=== PATIENT | male | born 1960 | race Caucasian/White ===

== ENCOUNTER 2022-06-26 04:38 | Inpatient (IN) | payer OTHER ==
[~2022-06-26] VITALS: Ht 180.3 cm; Wt 75.6 kg
[2022-06-26 04:56] LABS: BASOPHILS ABSOLUTE AUTO 0.06 K/mm3 (0.00-0.23); BASOPHILS PERCENT AUTO 1 % (0-2); EOSINOPHILS ABSOLUTE AUTO 0.09 K/mm3 (0.00-0.68); EOSINOPHILS PERCENT AUTO 1 % (0-6); Hematocrit 40.6 % (37.0-53.0); Hemoglobin 14.1 g/dL (13.5-17.5); IMMATURE GRAN ABSOLUTE AUTO 0.03 K/mm3 (0.00-0.10); IMMATURE GRAN PERCENT AUTO 0 % (0-1); LYMPHOCYTES PERCENT AUTO 7 % (21-46); MONOCYTES ABSOLUTE AUTO 0.56 K/mm3 (0.16-1.47); MONOCYTES PERCENT AUTO 6 % (4-13); Mean Corpuscular HGB 32.4 pg (26.0-34.0); Mean Corpuscular HGB Conc 34.7 g/dL (31.5-36.5); Mean Corpuscular Volume 93 fL (80-100); Mean Platelet Volume 10.2 fL (9.1-12.4); NEUTROPHILS ABSOLUTE AUTO 7.66 K/mm3 (1.96-9.15); NEUTROPHILS PERCENT AUTO 85 % (41-73); Platelet Count 192 K/mm3 (150-400); RDW Coefficient Variation 13.1 % (11.7-14.2); RDW Standard Deviation 45.1 fL (35.1-46.3); Red Blood Cell Count 4.35 M/mm3 (4.30-5.90)
[2022-06-26 05:04] LABS: PCO2 Arterial 50.5 mmHg (35-45); PO2 Arterial 219 mmHg (80-100)
[2022-06-26 05:05] LABS: pH Blood Arterial 7.29 (7.35-7.45)
[2022-06-26 05:23] LABS: U Amphetamine Screen DETECTED; U Barbituate Screen Not Detected; U Benzodiazapine Screen Not Detected; U Buprenorphine Screen Not Detected; U Cannabinoids Screen DETECTED; U Cocaine Screen Not Detected; U Methadone Screen Not Detected; U Methamphetamine Screen DETECTED; U Opiates Screen Not Detected; U Oxycodone Screen Not Detected; U Phencyclidine Screen Not Detected; U Propoxyphene Screen Not Detected
[2022-06-26 05:25] LABS: Alanine Aminotransfer (ALT/SGP 36 U/L (12-78); Albumin, Blood 3.2 g/dL (3.4-5.0); Alk Phos 61 U/L (50-136); Anion Gap 8 mmol/L (6-16); Aspartate Aminotrans (AST/SGOT 35 U/L (12-37); Bilirubin, Total 0.7 mg/dL (0.1-1.0); Blood Urea Nitrogen 20 mg/dL (8-24); Bun/Creatinine Ratio 14.7 (12.0-20.0); CO2, Blood 27 mmol/L (21-32); Calcium, Blood 8.7 mg/dL (8.5-10.1); Chloride, Blood 108 mmol/L (98-108); Creatinine, Blood 1.36 mg/dL (0.60-1.20); Ethanol (Alcohol), Blood, Med <3 mg/dL; Globulin, Blood 3.3 g/dL (2.2-4.0); Glomerular Filtration Rate 41 (60-); Glucose, Blood 113 mg/dL (70-99); Sodium, Blood 143 mmol/L (136-145); Total Protein, Blood 6.5 g/dL (6.4-8.2)
[2022-06-26 05:32] LABS: Magnesium, Blood 2.1 mg/dL (1.6-2.4)
[2022-06-26 08:37] LABS: Creatine Kinase MB 9.7 ng/mL (0.0-3.6); Creatine Kinase MB Index 3.1 (0.0-4.0)
--- NOTE | 2022-06-26 09:03 | NUR ---
PT IS INTUBATED W/ VENT SETTINGS AT 16/550/5/21% SPO2 >92%; MAP >65. PT GRIMACES TO NOXIOUS STIMULI, COUGH'S TO SUCTION, NO GAG REFLEX, PINPOINT PUPILS WITH SLOW RESPONSE, AND OPENS EYES WHEN REPOSITIONING. NARCAN RUNNING PER ORDER.
--- NOTE | 2022-06-26 11:08 | NUR ---
UPDATE PT FOLLOWING DIRECTIONS AND OPENING EYES SPONTANEOUSLY; SHAKING FEET. TOLERATING VENTILATOR FOR NOW. SOMNULENT.
--- NOTE | 2022-06-26 11:33 | NUR ---
UPDATE ADVANCED OG TUBE 4CM PER DR CHAMPION'S VERBAL ORDER W/O ISSUE.
--- NOTE | 2022-06-26 18:23 | NUR ---
SHIFT SUMMARY PT IS INTUBATED AND OFF SPONTANEOUS TRIAL AT 16/550/5/30% W/ SPO2 >92%. MAP >65 W/ PRESSURES SOFT AROUND WHEN NARCAN WAS DC'D (CHECK MONITOR/TREND), BUT HAS SINCE SBP HAS BEEN IN THE 100'S. PT HAS BEEN INTERMITTANTLY BEEN DIAPHORETIC, WITH THE FIRST TIME BEING AFTER NARCAN WAS DC'D. PT WAS INITIALLY UNRESPONSIVE W/ SLIGHT GRIMACES TO NOXIOUS STIMULI AND SLUGGISH PUPILS. AFTER NARCAN WAS DC'D PT HAD BRISK PUPILS AND HAS HAD RANDOM TWITCHES AND GRIMACES TO NOXIOUS STIMULI. PT HAD A SHORT PERIOD WHERE HE FOLLOWED DR. FRANCE'S COMMANDS, BUT HAS SINCE BEEN UNABLE TO FOLLOW COMMANDS.
--- NOTE | 2022-06-26 19:15 | NUR ---
ASSUMED CARE OF PT @1900. BEDSIDE REPORT: PT IS INTUBATED, ETT 8.0 27CM @[facility]. VC 16/550/5/30%. D5 50MLS/HR. PG MEGHA INFUSING. 20GA LAC. BSWR IN PLACE. ESPINO CATH PRESENT AND DRAINING TO GRAVITY.
--- NOTE | 2022-06-26 21:00 | NUR ---
PT TEMP CONTINUED TO RISE. COOL WASHCLOTH, ICE, AND FAN UTILIZED. TEMP SLOWLY DECREASED.
--- NOTE | 2022-06-27 02:30 | NUR ---
PT BECOMING INCREASINGLY AGGITATED. TEMP INCREASED BACK UP TO 100.5. SAT UP, OPENED EYES, AND WAS MOVING MOUTH DURING 0200 REPOSTINING. PT REACHING FOR ET TUBE. PT RESPONDED TO REDIRECTION. PRECEDEX STARTED AT 0.2MCG/KG/HR.
[2022-06-27 03:40] LABS: Hematocrit 38.4 % (37.0-53.0); Hemoglobin 13.3 g/dL (13.5-17.5); Mean Corpuscular HGB 32.1 pg (26.0-34.0); Mean Corpuscular HGB Conc 34.6 g/dL (31.5-36.5); Mean Corpuscular Volume 93 fL (80-100); Mean Platelet Volume 10.3 fL (9.1-12.4); Platelet Count 153 K/mm3 (150-400); RDW Coefficient Variation 13.3 % (11.7-14.2); RDW Standard Deviation 45.6 fL (35.1-46.3); Red Blood Cell Count 4.14 M/mm3 (4.30-5.90); White Blood Cell Count 2.23 K/mm3 (4.00-11.30)
[2022-06-27 04:10] LABS: Calcium, Blood 8.5 mg/dL (8.5-10.1); Creatinine, Blood 1.27 mg/dL (0.60-1.20); Potassium, Blood 3.6 mmol/L (3.5-5.5)
[2022-06-27 05:00] LABS: Source, Urine Foley catheter
[2022-06-27 05:15] LABS: Appearance, Urine Clear (Clear); Bilirubin, Urine Neg (Neg); Blood, Urine 3+ (Neg); Color, Urine Yellow (P-Yellow); Glucose Qualitative, Urine Neg (Neg); Ketones, Urine Neg (Neg); Leukocyte Esterase, Urine 2+ (Neg); Nitrite, Urine Neg (Neg); Protein, Urine 1+ (Neg); Urobilinogen, Urine NORM (Normal)
[2022-06-27 05:58] LABS: Squamous Epithelial Cells Few /hpf (Few)
[2022-06-27 05:59] LABS: Bacteria Rare /hpf
--- NOTE | 2022-06-27 06:16 | NUR ---
SUMMARY NEURO/PSYCH/MOBILITY: PT BECAME INCREASINGLY AGGITATED THROUGHOUT SHIFT. PULLING ON RESTRAINTS, UNCONTROLLED TWITCHING IN ALL EXTREMETIES AND FACE. NOT FOLLOWING COMMANDS, WITHDRAWING FROM NOXIOUS STIMULI. AT 0200 REPOSITION PT SAT UP IN BED, OPENED EYES, AND TRIED TO REACH FOR ETT. PATIENT BRIEFLY HAD PURPOSFUL MOVEMENT AND WAS TRYING TO MOUTH WORDS. REDIRECTED AND REORIENTED PT. PRECEDEX STARTED PER ORDER @0.2. TEMP AT BEGINNING OF SHIFT 100.2. ICE PACKS, FAN, AND COOL WASHCLOTH APPLIED. TEMP DECREASED FOR SEVERAL HOURS BEFORE TMAX OF 102.[address] OF SHIFT[address] DR FRANCE ORDERED BLOOD CULTURES, UA, AND THORACIC RADIOGRAPH. PT IS LIFTING LEGS. BSWR IN PLACE. RESP: PT LUNG CHAIREZ CLEAR W/DIMINISHED BASES. RR 18-22, SPO2 >92%. VENT AC VC 16/550/5/30%. PT TOLERATING THE VENT. CARDIAC: CONTINUOUS CARDIAC MONITORING. HR 80'S, SBP 90-120'S, MAP >65. PERIPHERAL PULSES STRONG. NO EDEMA NOTED. GI: OG TUBE IN PLACE AND CLAMPED. HYPOACTIVE BOWEL SOUNDS IN ALL 4 QUADRANTS. NO BOWEL MOVEMENT THIS SHIFT. PT NPO. : TEMP ESPINO IN PLACE AND DRAINING KIMMY URINE TO GRAVITY. URINALYSIS SENT THIS MORNING. SKIN: ASSESSMENT REMAINS UNCHANGED. PT OCCASIONALLY DIAPHORETIC. PG MEGHA INFUSING D5 100MLS/HR, PRECEDEX. 20GA LAC.
--- NOTE | 2022-06-27 08:04 | NUR ---
ASSUMED CARE PT IS INTUBATED W/ 16/550/5/30% VENT SETTINGS; SPO2 >92%, MAP >65. PT IS AROUSABLE AND FOLLOWS COMMANDS; HE ATTEMPTS TO SPEAK, BUT SEEMS TO BE ORIENTABLE TO HIS SURROUNDINGS AND COMMUNICATES W/ NODS AND/OR SQUEEZING HANDS. HE IS COMPLIANT W/ THE VENTILATOR, BUT HAS RANDOM TWITCHING. PULLS AT RESTRAINTS WHEN WOKEN OR REPOSITIONING; HE HAS 0.4 PRECEDEX AND 100MLS/HR OF D5 RUNNING. PT REMAINS DIAPHORETIC W/ TMAX OF 102.3; ICEPACKS APPLIED.
--- NOTE | 2022-06-27 12:04 | NUR ---
UPDATE PT IS COMMUNICATING MUCH MORE EFFECTIVELY THAN THIS AM. NODDING HEAD AND FOLLOWING DIRECTIONS WITH LESS PROMPTS. PRECEDEX WAS TURNED OFF EARLIER THIS AM. JAUNDICE NOTED IN THE CORNER OF EYES.
--- NOTE | 2022-06-27 12:33 | NUR ---
UPDATE PT WAS PUT ON SIMV BY DR FRANCE. PT DID NOT TOLERATE AND HAD A RUN OF BIGEMINY AND WAS TACHYCARDIC. RT PUT HIM BACK ONTO AC AND PT WENT BACK DOWN TO SINUS RHYTHM. DR FRANCE AWARE.
[2022-06-27 12:38] LABS: Albumin/Globulin Ratio 1.1 (0.8-1.8); Bilirubin, Direct 0.3 mg/dL (0.0-0.3); Bilirubin, Total 1.3 mg/dL (0.1-1.0); Globulin, Blood 2.8 g/dL (2.2-4.0); Total Protein, Blood 5.8 g/dL (6.4-8.2)
--- NOTE | 2022-06-27 15:35 | NUR ---
UPDATE VENT SETTINGS ARE NOW //30%
--- NOTE | 2022-06-27 17:14 | NUR ---
SHIFT SUMMARY PT IS ALERT AND ORIENTED W/ INTERMITTANT CONFUSION. TO HIS SURROUNDINGS. INTUBATED W/ SETTINGS AT 12/550/5/30%; SPO2 >92%. PT DID NOT TOLERATE BREATHING TRIAL AND BECAME TACHYCARDIC W/ A RUN OF BIGEMINY WHEN PUT ON SIMV. MAP >65. SEDATION IS OFF AND PT HAS BEEN ANSWERING QUESTIONS APPROPRIATELY AND SEEMS TO UNDERSTAND THAT HE'S IN THE HOSPITAL. HE IS NODDING/SHAKING HIS HEAD, THUMBS UP, AND FOLLOWING COMMANDS. BLOOD SUGARS HAVE BEEN STABLE IN THE 100S. ESPINO CATHETER IS PATENT AND DRAINING TO GRAVITY; SEDIMENT HAS BEEN NOTED IN THE LAST HALF OF SHIFT IN TUBING. T-MAX WAS 102.3; TYLENOL AND ICEPACKS USED, TEMP IS NOW 99.0. NIECE WAS IN TO SEE PATIENT AND DISCUSSED WITH DR FRANCE ABOUT CAREPLAN.
--- NOTE | 2022-06-27 21:51 | NUR ---
ASSUMPTION OF CARE: ASSUMED CARE OF PT AT 1900. PT IS AWAKE AND ON VENT WITH SETTINGS 16/550/5/30%. PT IS ABLE TO TRACK MOVEMENTS WITH HIS EYES, PERRSIERRA BILAT. PT IS ABLE TO FOLLOW COMMANDS AT THIS TIME AND IS ANSWERING SIMPLE QUESTIONS NODDING YES/NO; PT COMMUNICATED WITH THIS RN USING A MARKER AND PAPER THIS SHIFT WITH ELIGIBLE HANDWRITTING. PT HAS FULL ROM OF UPPER AND LOWER EXTREMIITES AND ABLE TO LIFT LEGS/HANDS, AND IS HELPING WITH TURNS. PT HAS NO SEDATION AT THIS TIME. PT HAS NO C/O OF PAIN AND APPEARS TO BE RESTING COMFORTABLY IN BED. PT HAS CLEAR LUNG SOUNDS AND DIM BASES, RR 12-14, AND O2 LEVELS 98<. PT HR IN THE 60-70'S AND SBP 110'S; CONTINUOUS ATTORNEY LAW CLERK IN PLACE. THE PT HAS AN OGT THAT IS INFUSING TUBE FEEDS AT 15 MLS/HR. HYPOACTIVE BS IN ALL FOUR QUADRANTS, ABD IS SLIGHTLY FIRM UPON PALPATION BUT NOT PAINFUL TO PT. PT HAS A TEMP ESPINO IN PLACE THAT IS PATENT AND DRAINING TO GRAVITY; URINE YELLOW. PT CORE TEMPS READING 99.0-99.8. PT SKIN IS WARM AND DIAPHORETIC; ICE PACKS PLACED AND FAN ON PT. PPP X 4 AND CAP REFIL MAINTAINING < 3 SECONDS. WILL CONTINUE TO MONITOR THROUGHOUT THE SHIFT.
[2022-06-28 04:49] LABS: Hematocrit 39.9 % (37.0-53.0); Hemoglobin 13.6 g/dL (13.5-17.5); Mean Corpuscular HGB 31.3 pg (26.0-34.0); Mean Corpuscular HGB Conc 34.1 g/dL (31.5-36.5); Mean Corpuscular Volume 92 fL (80-100); Mean Platelet Volume 10.2 fL (9.1-12.4); Platelet Count 146 K/mm3 (150-400); RDW Coefficient Variation 13.1 % (11.7-14.2); RDW Standard Deviation 44.9 fL (35.1-46.3); Red Blood Cell Count 4.34 M/mm3 (4.30-5.90); White Blood Cell Count 1.59 K/mm3 (4.00-11.30)
[2022-06-28 05:12] LABS: Albumin, Blood 2.8 g/dL (3.4-5.0); Albumin/Globulin Ratio 0.8 (0.8-1.8); Bilirubin, Total 1.3 mg/dL (0.1-1.0); Bun/Creatinine Ratio 10.9 (12.0-20.0); Calcium, Blood 8.6 mg/dL (8.5-10.1); Creatinine, Blood 0.92 mg/dL (0.60-1.20); Globulin, Blood 3.6 g/dL (2.2-4.0); Magnesium, Blood 1.6 mg/dL (1.6-2.4); Phosphorus, Blood 2.3 mg/dL (2.5-4.9); Potassium, Blood 3.7 mmol/L (3.5-5.5); Total Protein, Blood 6.4 g/dL (6.4-8.2)
--- NOTE | 2022-06-28 06:53 | NUR ---
SHIFT SUMMARY: NO ACUTE CHANGES. PT PLACED ON SPONTANEOUS MODE THIS MORNING AT 0300 WITH FIO2 30% AND PEEP 5. PT TOLERATING WELL WITH RR 12-18 AND TIDAL VOLUMES 200-600. PT OBSERVED TAKING SHALLOW BREATHS WHEN SLEEPING AND IS WOKEN UP TO REMIND HIM ABOUT DEEP BREATHS. PT O2 LEVELS MAINTAINED 92< SINCE MODE CHANGE. PT VSS. PT ABLE TO COMMUNICATE WITH RN BY WRITING WITH PEN/PAPER. PT IS ASKING ABOUT WHY HE IS HERE AND IS NOT ABLE TO REMEMBER EVENTS WHEN REORIENTED. PALLIATIVE CARE CONSULT ORDERED BY THIS RN. WILL CONTINUE TO MONITOR UNTIL ONCOMING RN ARRIVES.
--- NOTE | 2022-06-28 10:09 | NUR ---
EXTUBATE DR. FRANCE ROUNDED ON PT AND GAVE OK TO EXTUBATE. RT NOTIFIED AND PT EXTUBATED AT 0959 AND PLACED ON 4L/NC, THEN TITRATED DOWN TO 2L/NC AFTER PT HAD SPO2 100% FOR 5 MINUTES. PT ALERT, STOIC. REVIEWED LIST OF PEOPLE WHO CAN RECEIVE INFORMATION WITH PT AND IS ON THE CHART. PT'S NIECE AND NEPHEW ARE HERE WHO PT SAYS HE WANTS HIS MAIN SPOKES PEOPLE AND LISTED HIS EMERGENCY CONTACTS. PALLIATIVE CARE IN THE ROOM AND SAID THEY WILL UPDATE THIS.
--- NOTE | 2022-06-28 12:21 | NUR ---
REASSESSMENT PT WAS EXTUBATED THIS MORNING AND WAS QUICKLY TITRATED DOWN FROM 4L/NC TO 1L/NC. CURRENT SPO2 IS 98% ON 1L. HE IS ALERT AND ORIENTED TO PERSON, PLACE AND YEAR. HE THOUGHT IT WAS INSTEAD OF JUNE. HE DENIES ANY RECOLLECTION OF EVENTS LEADING UP TO HOSPITALIZATION. PALLIATIVE CARE AND PT'S NIECE AND NEPHEW MET WITH HIM AFTER EXTUBATION AND INFORMED HIM OF THE OF HIS SIGNIFICANT OTHER HE WAS WITH. FAMILY HAS BEEN STAYING AT THE BEDSIDE SINCE. PT'S LUNGS ARE CLEAR IN THE UPPERS, COARSE IN THE BOTTOM RIGHT. PT IS COUGHING UP SOME SPUTUM, BUT JUST SWALLOWING IT. TRIALLED PT WITH SIPS OF WATER AND HE WAS CLEARING HIS THROAT AFTER EACH SIP SO WILL HOLD OFF ON PO INTAKE AND ASSESS AGAIN LATER THIS AFTERNOON. REMAINS SR, BP STABLE. STILL DIAPHORETIC. PT STATES HE HAS CHILLS AND TEMP 99.3F. CONTINUING TO MONITOR.
--- NOTE | 2022-06-28 16:51 | NUR ---
SHIFT SUMMARY PT HAS DONE WELL SINCE EXTUBATION THIS MORNING. HE IS ON 2L/NC THIS AFTERNOON WHILE TAKING A NAP HIS SPO2 DROPPED TO THE UPPER 80S WHEN HE FELL ASLEEP. HIS LS CONTINUE TO BE COARSE IN THE R BASE. SR, BP STABLE. MENTATION STILL A LITTLE SLOW, BUT PT IS ORIENTED AND WAKES TO VOICE. HE WORKED WITH PHYSICAL THERAPY THIS AFTERNOON, BUT GOT NAUSEOUS - IMPROVED WITH ZOFRAN, WHICH LIMITED THERAPY. PT STARTED TAKING SIPS OF WATER BUT THEN HAD THE NAUSEA AND HAS BEEN RESTING SINCE SO DIET HASN'T BEEN ADVANCED YET. MULTIPLE FAMILY MEMBERS IN AND OUT THROUGHOUT THE DAY.
--- NOTE | 2022-06-28 17:31 | NUR ---
Pt was extubated this am. Shortly after, his nephew rDu and Marylu arrived to visit. The pt indicated he wanted these 2 to be his point of contact, and they also agreed to disseminate information to the rest of pt's family and friends, as multiple callers have identified themselves as family requesting information over the past 48 hrs, with no way to know who was who. Today, Dru explains that pt does have a twin sister Natalia and a sister Madelyn. Pt confirms this information, but also requests Dru and Marylu be his person to notify. Pt then asked if his s/o Fidelia was ok, and Dru'e Marylu held his hand and told him no, that she didn't make it; that she had . Pt stated he didn't remember any of that, and began to cry softly. His family remained beside him, and multiple other family members began to arrive. They were allowed in for a visit, but ultimately all requested to come in smaller groups of 3, and only for a short stay as not to overwhelm and increase pt's confusion today. Palliative to remain available to provide therapeutic listening as desired by pt and/or family.
--- NOTE | 2022-06-28 22:04 | NUR ---
ASSUMPTION OF CARE: ASSUMED CARE OF PT AT 1900. PT IS ASLEEP BUT AROUSABLE TO VERBAL STIMULI. THE PT CURRENTLY IS ON 2L VIA NC. PT LS CLEAR BUT COARSE IN RLL; PT RR 8-10 WITH O2 LEVELS 98<. PT HR IN THE 70'S WITH SBP 120'S; CONTINUOUS RELIGION DEPARTMENT CHAIR IN PLACE. PT HAS HYPOACTIVE BS IN ALL FOUR QUADRANTS; ABD FIRM BUT NON-TENDER. PT HAS A TEMP ESPINO IN PLACE THAT IS DRAINING TO GRAVITY WITH CLEAR, YELLOW URINE OUT. PT HAS FULL ROM AT THIS TIME AND IS INDEPENDENT WITH BED MOBILITY; THIS RN ASSISTS WITH TURNS ONLY TO TUCK PILLOW BEHIND PT'S BACK. PT IS A&O X 3-4; PT UPDATED ON EVENTS THAT LED TO HIS HOSPITILIZATION BUT SEEMS FOGGY WHEN ASKED WHY HE IS HERE. THE PT APPEARS TO BE DROWSY AND EASILY GOES BACK TO SLEEP AFTER ANSWERING QUESTIONS. PT IS COOPERATIVE WITH CARE AND APPROPRIATE WITH BEHAVIOR. PT HAS NO C/O CHEST PAIN, SOB OR N/V. PT FEBRILE SO FAN AND COOL WASH CLOTH PLACED. PT USING CALL LIGHT AND BED CONTROLS APPROPRIATE. BED LOWERED AND CALL LIGHT IN REACH. WILL CONTINUE TO MONITOR.
--- NOTE | 2022-06-29 06:15 | NUR ---
SHIFT SUMMARY: NO ACUTE CHANGES THIS SHIFT. VSS THROUGHOUT THE NIGHT. O2 REQUIREMENTS TITRATED TO 3 L NC TO MAINTAIN O2 LEVELS 92< WHILE PT SLEPT. PT COMTINUES TO BE INDEPENDENT WITH BED MOBILITY. PT HAS BEEN SLEEPING THROUGHOUT THE NIGHT. PT TOO DROWSY TO ATTEMPT TO ADVANCE DIET AT THIS TIME. PT CONTINUES TO BE DIAPHORETIC THROUGHOUT THE SHIFT. UNABLE TO DRAW FROM PG, HAIRSPRING STUDDER ATTEMPED STRAIGHT STICK AND UNABLE TO OBTAIN BLOOD, ANOTHER HAIRSPRING STUDDER SUPPOSE TO COME BY TO ATTEMP TO COLLECT BLOOD FOR AM LABS. WILL CONTINUE TO MONITOR THROUGHOUT THE SHIFT.
--- NOTE | 2022-06-29 07:00 | NUR ---
Assumed care at 0700 Report received from offgoing RN, pt A/O and resting well. Was informed of his SO passing yesterday, has been withdrawn. On 3L NC while asleep. Temp probe alonso still in place. Powerglide flushing well but not withdrawing blood. Lab to draw am labs. RN to continue to monitor.
[2022-06-29 07:21] LABS: BASOPHILS ABSOLUTE AUTO 0.03 K/mm3 (0.00-0.23); BASOPHILS PERCENT AUTO 2 % (0-2); EOSINOPHILS ABSOLUTE AUTO 0.05 K/mm3 (0.00-0.68); EOSINOPHILS PERCENT AUTO 3 % (0-6); Hematocrit 42.2 % (37.0-53.0); Hemoglobin 14.9 g/dL (13.5-17.5); IMMATURE GRAN PERCENT AUTO 0 % (0-1); LYMPHOCYTES ABSOLUTE AUTO 0.58 K/mm3 (0.84-5.20); LYMPHOCYTES PERCENT AUTO 39 % (21-46); MONOCYTES ABSOLUTE AUTO 0.59 K/mm3 (0.16-1.47); MONOCYTES PERCENT AUTO 39 % (4-13); Mean Corpuscular HGB 31.9 pg (26.0-34.0); Mean Corpuscular HGB Conc 35.3 g/dL (31.5-36.5); Mean Corpuscular Volume 90 fL (80-100); NEUTROPHILS ABSOLUTE AUTO 0.25 K/mm3 (1.96-9.15); NEUTROPHILS PERCENT AUTO 17 % (41-73); Platelet Count 161 K/mm3 (150-400); RDW Coefficient Variation 12.8 % (11.7-14.2); RDW Standard Deviation 42.4 fL (35.1-46.3); Red Blood Cell Count 4.67 M/mm3 (4.30-5.90)
[2022-06-29 07:36] LABS: Calcium, Blood 9.5 mg/dL (8.5-10.1); Creatinine, Blood 0.9 mg/dL (0.60-1.20); Potassium, Blood 3.8 mmol/L (3.5-5.5)
[2022-06-29 07:45] LABS: BAND PERCENT MAN 1 % (0-8); BASOPHILS PERCENT MAN 0 % (0-2); EOSINOPHILS ABSOLUTE MAN 0.01 K/mm3 (0.00-0.68); EOSINOPHILS PERCENT MAN 1 % (0-6); LYMPHOCYTES ABSOLUTE MAN 0.64 K/mm3 (0.84-5.20); LYMPHOCYTES PERCENT MAN 43 % (21-46); MONOCYTES ABSOLUTE MAN 0.66 K/mm3 (0.16-1.47); MONOCYTES PERCENT MAN 44 % (4-13); NEUTROPHILS ABSOLUTE MAN 0.18 K/mm3 (1.96-9.15); SEG NEUTROPHILS PERCENT MAN 11 % (41-73); TOTAL CELLS COUNTED 100
--- NOTE | 2022-06-29 14:18 | NUR ---
Spiritual Care Visit Attempted. Based on ICU nurse recommendation. Pt. declined any interest in Spiritual Care. Pt. verbalized gratitude for the visit.
--- NOTE | 2022-06-29 16:19 | NUR ---
CALL PLACED TO MD NOTIFIED HOSPITALIST OF WITHDRAWL SYMPTOMS (DIAPHORESIS, CLAMMY, TEMP 99), ALSO REVIEWED MEDICATION ORDERS, NEW ORDERS RECEIVED. PT RESTING, HAS WORKED WITH PT/OT, DECLINES A SHOWER AT THIS TIME, STATES HE WILL CONSIDER A BED BATH AROUND DINNER TIME. DENIES PAIN. FAMILY IN TO VISIT FOR AN HOUR TODAY. PT IS MEDICAL STATUS, NO TELE. NO BED CURRENTLY AVAILABLE. RN TO CONTINUE TO FOLLOW.
--- NOTE | 2022-06-29 18:09 | NUR ---
END OF SHIFT SUMMARY PT MEDICAL STATUS, NO TELE. NO LONGER ON CARDIAC MONITORING. ALERT AND ORIENTED, DROWSY AND WITHDRAWN. DIAPHORETIC, REPORTED TO HOSPITALIST. LUNGS CLEAR, ON ROOM AIR, SPO2 ON SPOT CHECK 97%. ATE BREAKFAST AND LUNCH, HAS NOT WANTED DINNER BUT STATES HE MAY WANT IT LATER. NO NAUSEA OR VOMITING. ESPINO D/C'D, VOIDS WITHOUT DIFFICULTY. SKIN INTACT, DECLINES A BATH, WAS OFFERED SEVERAL TIMES. SEVERAL FAMILY MEMBERS IN TO VISIT, PT MINIMALLY INTERACTIVE. AWAITING BED ON THE MEDICAL FLOOR.
--- NOTE | 2022-06-29 19:30 | NUR ---
ASSUMED CARE: PT ASLEEP AT THIS TIME AND WAKES UP TO VERBAL STIMULATION BUT DOES NOT APPEAR TO WANT TO PARTICIPATE IN CARE. REASSURANCE PROVIDED.
--- NOTE | 2022-06-29 21:15 | NUR ---
PT TRANSFERRED TO BED 333 VIA WHEELCHAIR WITH PERSONAL BELONGINGS, MED, AND CHART
--- NOTE | 2022-06-30 04:40 | NUR ---
SHIFT SUMMARY PT TRANSFER FROM ICU AROUND 0000. PT SETTLED INTO BED, WENT OVER ADMISSION. PT WITHDRAWN, ONLY RESPONDING TO YES/NO QUESTIONS. DENIES PAIN,SOB,CP, N/V. MILD FEVER THIS AM AT 100.2F, ADMINISTERED TYLENOL THAT WAS EFFECTIVE. NO S/S OF DISTRESS. PT AMBULATED TO BATHROOM, STEADY ON FEET. BED ALARM IN PLACE, EDUCATED QUALITY ASSURANCE ASSISTANT LIGHT. WILL CONTINUE TO MONITOR.
[2022-06-30 08:18] LABS: BASOPHILS ABSOLUTE AUTO 0.03 K/mm3 (0.00-0.23); BASOPHILS PERCENT AUTO 2 % (0-2); EOSINOPHILS ABSOLUTE AUTO 0.08 K/mm3 (0.00-0.68); EOSINOPHILS PERCENT AUTO 5 % (0-6); Hematocrit 41.6 % (37.0-53.0); IMMATURE GRAN ABSOLUTE AUTO 0.02 K/mm3 (0.00-0.10); IMMATURE GRAN PERCENT AUTO 1 % (0-1); LYMPHOCYTES ABSOLUTE AUTO 0.61 K/mm3 (0.84-5.20); LYMPHOCYTES PERCENT AUTO 39 % (21-46); MONOCYTES PERCENT AUTO 32 % (4-13); Mean Corpuscular HGB 31.9 pg (26.0-34.0); Mean Corpuscular HGB Conc 36.1 g/dL (31.5-36.5); Mean Corpuscular Volume 89 fL (80-100); NEUTROPHILS ABSOLUTE AUTO 0.31 K/mm3 (1.96-9.15); NEUTROPHILS PERCENT AUTO 20 % (41-73); RDW Coefficient Variation 12.4 % (11.7-14.2); RDW Standard Deviation 40.5 fL (35.1-46.3); White Blood Cell Count 1.55 K/mm3 (4.00-11.30)
[2022-06-30 08:44] LABS: Mean Platelet Volume 10.8 fL (9.1-12.4)
[2022-06-30 09:32] LABS: Platelet Count 188 K/mm3 (150-400)
--- NOTE | 2022-06-30 18:43 | NUR ---
shift summary pt independent in room. has denied pain throughout day. did report nausea that improved. had a friend in to visit for several hours. flat afftect and minimal interaction with staff.
--- NOTE | 2022-07-01 04:48 | NUR ---
Summary: Patient did well overnight. VSS. No acute events. Provided patient with snacks as he requested. Patient withdrawn and not interactive. Patient independent in room. O2 stable on room air.
[2022-07-01 05:31] LABS: BASOPHILS ABSOLUTE AUTO 0.05 K/mm3 (0.00-0.23); BASOPHILS PERCENT AUTO 2 % (0-2); EOSINOPHILS ABSOLUTE AUTO 0.13 K/mm3 (0.00-0.68); EOSINOPHILS PERCENT AUTO 5 % (0-6); Hematocrit 42.5 % (37.0-53.0); Hemoglobin 15.1 g/dL (13.5-17.5); IMMATURE GRAN ABSOLUTE AUTO 0.01 K/mm3 (0.00-0.10); IMMATURE GRAN PERCENT AUTO 0 % (0-1); LYMPHOCYTES ABSOLUTE AUTO 1.11 K/mm3 (0.84-5.20); LYMPHOCYTES PERCENT AUTO 45 % (21-46); MONOCYTES ABSOLUTE AUTO 0.69 K/mm3 (0.16-1.47); MONOCYTES PERCENT AUTO 28 % (4-13); Mean Corpuscular HGB 31.5 pg (26.0-34.0); Mean Corpuscular HGB Conc 35.5 g/dL (31.5-36.5); Mean Corpuscular Volume 89 fL (80-100); Mean Platelet Volume 9.9 fL (9.1-12.4); NEUTROPHILS ABSOLUTE AUTO 0.46 K/mm3 (1.96-9.15); NEUTROPHILS PERCENT AUTO 19 % (41-73); Platelet Count 210 K/mm3 (150-400); RDW Coefficient Variation 12.4 % (11.7-14.2); RDW Standard Deviation 40.7 fL (35.1-46.3); Red Blood Cell Count 4.79 M/mm3 (4.30-5.90); White Blood Cell Count 2.45 K/mm3 (4.00-11.30)
[2022-07-01 05:46] LABS: Bun/Creatinine Ratio 19.1 (12.0-20.0); Calcium, Blood 9.5 mg/dL (8.5-10.1); Creatinine, Blood 0.94 mg/dL (0.60-1.20); Potassium, Blood 3.7 mmol/L (3.5-5.5)
--- NOTE | 2022-07-01 11:53 | NUR ---
PT LYING ON BED, FLAT AND WITHDRAWN. STATES NO NEEDS. NO PAIN. BED IN LOW POSITION, CALL LITEIN REACH, CALLS APPROP
[2022-07-01] MEDS ORDERED: LEVFLO500 PO (17:01)
--- NOTE | 2022-07-01 17:39 | NUR ---
DISCHARGE REVIEWED WITH PT. IV PULLED INTACT. NO TELE. PT VERBALIZED UNDERSTANDING MEDS AND INSTRUCT. NEICE TO COME EQUIPMENT OPERATOR. PT DRESSED SELF AND READY TO GO WHEN RIDE HERE.
--- NOTE | 2022-07-01 18:03 | NUR ---
PT DISCHARGED. WALKED TO DOOR BY ELADIO AT 1800
[2022-07-02 00:08] LABS: HIV AB/P24 AG SCREEN Non Reactive (Non Reactive)
== END 2022-07-01 18:31 | disposition home health service (06) | DRG 917 ==
LOC: ER 04:38 → EDBD 04:38 → ICUE 06:17 → ICUW 06:17 → MEDS 06:17 → ICUE 07:28 → MEDS 06-29 21:30
PROVIDERS: Internal Medicine; Internal Medicine Critical Care Medicine; Student in an Organized Health Care Education/Training Program; ADMIT Internal Medicine
PROC: 0BH17EZ Insertion of Endotracheal Airway into Trachea, Via Natural or Artificial Opening (ICD-10-PCS; principal; 2022-06-26)
PROC: 5A1945Z Respiratory Ventilation, 24-96 Consecutive Hours (ICD-10-PCS; 2022-06-26)
DX: T43.621A Poisoning by amphetamines, accidental (unintentional), initial encounter (principal); G92.8 Other toxic encephalopathy; J96.01 Acute respiratory failure with hypoxia; J13 Pneumonia due to Streptococcus pneumoniae; J96.02 Acute respiratory failure with hypercapnia; N17.9 Acute kidney failure, unspecified; E87.29 Other acidosis; J98.11 Atelectasis; B44.9 Aspergillosis, unspecified; F15.10 Other stimulant abuse, uncomplicated; E16.2 Hypoglycemia, unspecified; F43.20 Adjustment disorder, unspecified; X58.XXXA Exposure to other specified factors, initial encounter
CPT/HCPCS: 36415; 36600; 51702; 70450; 71045; 71260; 80048; 80053; 80076; 81001; 82550; 82553; 82607; 82746; 82803; 82947; 83605; 83735; 84100; 84484; 85025; 85027; 87040; 87070; 87086; 87106; 87186; 87205; 87389; 93005; 93010; 94002; 94003; 94760; 96365; 96366; 97116; 97162; 97166; 97530; 97535; 99291-25; 99292; A9270; C1751; G0480; J0696; J1644; J1650; J2310; J2405; J2704; J7030; J7050; J7070; Q9967